=== PATIENT | male | born 1965 | race Caucasian/White ===

== ENCOUNTER 2017-05-08 19:38 | Emergency (ER) | payer OTHER ==
[~2017-05-08] VITALS: Ht 167.6 cm; Wt 113.4 kg
[2017-05-08] MEDS ORDERED: MOBIC15 MG PO (20:30)
[2017-05-08] MEDS ORDERED: NORFLEX100 MG PO (20:30)
== END 2017-05-08 21:09 | disposition home or self-care (01) ==
LOC: EDBD 19:38 → ER 19:38
DX: M62.830 Muscle spasm of back (principal); M54.5 Low back pain

== ENCOUNTER → 2018-04-03 | Outpatient (CLI) | payer BC ==
[~2018-04-03] MED LIST: MOBIC15 MG PO; NORFLEX100 MG PO
== END ==
LOC: ULTRA 12:33
DX: M25.462 Effusion, left knee (principal); R60.1 Generalized edema

== ENCOUNTER → 2020-03-11 | Outpatient (CLI) | payer BC | LOC: LAB 10:41 | PROVIDERS: ATTEND Pediatrics | DX: U07.1 COVID-19 (principal) ==

== ENCOUNTER → 2020-04-08 | Outpatient (CLI) | payer OTHER | LOC: LAB 12:51 | PROVIDERS: ATTEND Pediatrics | DX: Z20.822 Contact with and (suspected) exposure to COVID-19 (principal) ==

== ENCOUNTER → 2020-04-11 | Outpatient (CLI) | payer BC ==
--- NOTE | 2020-04-13 22:20 | SLE ---
[facility] [place] [address] POLYSOMNOGRAPHY STUDY Name: CHRISTLELE SCHROEDER Room #: REG [facility].#: [id number] Admission: 04/11/20 Attend Phys: Maynor Olivares MD Discharge: Date of : 63 Report #: [id number] THIS REPORT FOR: cc: Patrick Mattson MD, Stanley P. MD Khan, Aman U. MD ~ DATE OF SERVICE: 04/11/2020 SLEEP STUDY ATTENDING PHYSICIAN: Dr. Carlos Orellana. The patient is a 54-year-old who weighs 340 pounds with a BMI of 54.9. The patient has history of sleep apnea for which he has been on CPAP at 14 cm water; however, the patient still feels fatigued and tired and has excessive daytime somnolence. The patient was referred for further evaluation with another CPAP titration study, which was performed at [facility]. During the night study, the patient spent 49 minutes in bed and slept for 436 minutes with a sleep efficiency of 89%. Sleep latency was 12.1 minutes with a REM latency of 151 minutes. Sleep architecture showed increased stage 1 and stage 2 sleep, absent slow wave and normal REM sleep. EKG monitoring revealed an average heart rate of 56 beats per minute. No sustained arrhythmias observed. PLMs were seen at an index of 34 per hour and 3 per hour caused EEG arousals. The patient was started on CPAP at 14 cm water and titrated up to 19 cm water. At the final pressure, the patient slept for 110 minutes including 31.5 minutes of supine REM sleep. The patient's AHI was reduced to 0.5 per hour and oxygen saturations remained above 90%. IMPRESSION: 1. Sleep apnea diagnosed by previous sleep study. 2. Moderate periodic limb movements. RECOMMENDATIONS: 1. CPAP at 19 cm water completely eliminated the patient's sleep apnea and should be used on a nightly basis. 2. Follow up in 4-6 weeks to assess compliance with CPAP and to document clinical improvement. 3. Weight loss is strongly advised. 4. Avoid DAG COATER depressants. 5. Cautioned regarding driving until symptoms of sleep apnea resolve with the [facility] [address] [place] [address] POLYSOMNOGRAPHY STUDY Name: CHRISTELLE SCHROEDER Room #: REG [facility].#: [id number] Admission: 04/11/20 Attend Phys: Maynor Olivares MD Discharge: Date of : 63 Report #: [id number] use of CPAP. 6. PLMs does not need to be treated unless the patient has symptoms of restless legs during the day. <ELECTRONICALLY SIGNED> By: Maynor Olivares MD 04/13/202219 22 31 Maynor Olivares MD /nt
== END ==
LOC: SLEEPLAB 03-16 15:44
PROVIDERS: ATTEND Internal Medicine Critical Care Medicine
DX: G47.30 Sleep apnea, unspecified (principal)

== ENCOUNTER → 2020-09-18 | Outpatient (CLI) | payer BC ==
[~2020-09-18] VITALS: Ht 170.2 cm; Wt 156.5 kg
[~2020-09-18] MED LIST changes: +ALPRAZOLAM 0.0.25 M1 PO; +ASTRAGALUS ROOT1 GM PO; +GARLIC1 EACH PO; +GINKGO BILOBA120 MG PO; +LISINOPRIL5 MG PO; +NORVASC 2.5 MG2.5 MG PO; +PAROXETINE CR25 MG PO; +TRIAMTERENE/HCT1 CA1 PO; +ZOLPIDEM TARTRA10 MG PO
--- NOTE | ~2020-09-18 | P ---
[facility] [place] [address] PROCEDURE REPORT Name: CHRISTELLE SCHROEDER Room #: REG [facility].#: [id number] Admission: 09/18/20 Attend Phys: Bruno Alford Discharge: Date of : 63 Report #: [id number] THIS REPORT FOR: cc: Patrick Mattson MD, Stanley P. MD McElhinney, Christian C. MD ~ DOC #: [id number] cc: MD Bruno Zavaleta MD DATE OF SERVICE: 09/18/2020 PROCEDURE PERFORMED: Upper endoscopy with biopsies. HISTORY OF PRESENT ILLNESS: The patient is a 55-year-old male with a history of anemia, who was taking meloxicam on a daily basis, but quit taking this approximately a month ago. He denies any symptoms including nausea, vomiting, abdominal pain, diarrhea, melena or bright red blood per rectum. No previous history of endoscopy. He has a history of obesity and is considering gastric sleeve surgery in the future. Plan is for EGD and colonoscopy today. DESCRIPTION OF PROCEDURE: The risks and benefits of the procedure were explained to the patient, those risks including but not limited to bleeding, perforation and the risk of sedation. He understood these risks and gave informed consent. Sedation was given using propofol per anesthesia. Next, using a standard Olympus upper endoscope, the scope was placed in the patient's mouth and advanced under direct vision through the esophagus, stomach and into the second portion of the duodenum. The larynx was normal in appearance. The esophagus was normal throughout. The GE junction was normal. Overall, the gastric mucosa was normal in the fundus and body; however, in the antrum a mild gastritis was noted. A single ulcer was also noted, 8 mm in diameter. No evidence of bleeding. Biopsies were obtained to rule out H. pylori. The pylorus was normal and patent. The duodenal bulb, first and second portion were normal. Random biopsies of the second portion were also obtained to rule out the possibility of celiac sprue. The scope was then withdrawn and the procedure terminated. The patient tolerated the procedure well. IMPRESSION: 1. Single gastric antral ulcer. No evidence of bleeding with surrounding mild gastritis. 2. Otherwise, normal upper endoscopy. RECOMMENDATIONS: 1. Await biopsy results. 2. Recommend daily PPI therapy. 3. We will proceed with colonoscopy next today. [address] [address] PROCEDURE REPORT Name: CHRISTELLE SCHROEDER Room #: REG [facility]#: [id number] Admission: 09/18/20 Attend Phys: Bruno Alford Discharge: Date of : 63 Report #: [id number] Thank you for allowing me to participate in his care. Bruno Basurto MD CCM/CRISPIN By: 0735 44 Bruno Basurto MD /kayla
--- NOTE | ~2020-09-18 | P ---
[facility] [place] [address] PROCEDURE REPORT Name: CHRISTELLE SCHROEDER Room #: REG [facility].#: [id number] Admission: 09/18/20 Attend Phys: Bruno Alford Discharge: Date of : 63 Report #: [id number] THIS REPORT FOR: cc: Patrick Mattson MD, Stanley P. MD McElhinney, Christian C. MD ~ DOC #: [id number] cc: MD Bruno Zavaleta MD DATE OF SERVICE: 09/18/2020 PROCEDURE PERFORMED: Colonoscopy with biopsies. HISTORY OF PRESENT ILLNESS: The patient is a 55-year-old male with a history of anemia. Upper endoscopy was just performed showing an antral ulcer, nonbleeding; mild gastritis. The patient was on meloxicam, but was held approximately a month ago. Otherwise, normal upper endoscopy. He has never had EGD or colonoscopy before. Denies any change in his stools. No obvious blood in the stools. Apparently had a Hemoccult testing that was negative. Plan is for colonoscopy next today. DESCRIPTION OF PROCEDURE: The risks and benefits of the procedure were explained to the patient, those risks including but not limited to bleeding, perforation and the risk of sedation. He understood these risks and gave informed consent. Sedation was given using propofol per anesthesia. Next, a digital rectal exam was initially performed, which was normal. Next, using a standard Olympus colonoscope, the scope was placed in the patient's anus and advanced under direct vision to the cecum. The overall prep was excellent. The cecum and ileocecal valve were normal in appearance. In the ascending colon, a 4 mm sessile polyp was noted. This was removed with cold forceps, otherwise normal. The transverse, descending colon were normal. A few small scattered diverticuli were noted in the sigmoid colon. No evidence of inflammation. The rectal mucosa was normal. On retroflexion, small nonbleeding internal hemorrhoids were noted. The scope was then withdrawn and the procedure terminated. The patient tolerated the procedure well. IMPRESSION: 1. Small colonic polyp. 2. Mild sigmoid diverticulosis. 3. Small internal hemorrhoids. 4. Otherwise, normal colonoscopy. RECOMMENDATIONS: 1. Await biopsy results. 2. If polyp is hyperplastic, repeat in 10 years; if adenomatous polyp, repeat [address] [address] PROCEDURE REPORT Name: RAQUEL SCHROEDEREL Room #: REG [facility]#: [id number] Admission: 09/18/20 Attend Phys: Bruno Alford Discharge: Date of : 63 Report #: [id number] in 5 years. 3. The patient with a single antral ulcer, could be the etiology of his anemia. No evidence of active bleeding today. I would recommend long-term PPI therapy, if biopsies are negative for H. pylori, especially since the patient will also be likely undergoing gastric sleeve surgery in the future. Thank you for allowing me to participate in his care. Bruno Basurto MD CCM/CHERYL By: [id number] Bruno Basurto MD /nt
--- NOTE | 2020-09-22 19:07 | PATH ---
[facility] [place] [address] PATHOLOGY RPT PROCEDURE Name: HILTON SCHROEDER Room #: REG [facility].#: [id number] Admission: 09/18/20 Date of : 63 Discharge: Report #: [id number] Path Case #: [id number] [facility] Accession Number: [id number] . 01 Material submitted: . PART A: duodenum - DUODENAL BX R/O SPRUE PART B: gastrointestinal site - GASTRITIS BX R/O H PYLORI PART C: colon - ASCENDING COLON POLYP. Modifiers: ascending . 01 Clinical history: . EGD COLONOSCOPY/ ANEMIA/SCREENING . 02 Diagnosis: A. Small bowel mucosa, duodenum R/O sprue, endoscopic biopsy: - No diagnostic abnormalities present. - Negative for villous blunting or increase in intraepithelial lymphocytes. . B. Gastric mucosa, gastritis R/O H. pylori, endoscopic biopsy: - Mild chronic inflammation. - Negative for intestinal metaplasia or atrophy. - Negative for Helicobacter pylori (properly controlled immunohistochemical stain performed). . C. Polyp, ascending colon polyp, endoscopic biopsy: - Serrated polyp. - Negative for dysplasia. ([facility]; 09/22/2020) QMS 09/22/2020 1258 Local . 02 Electronically signed: . Gosia Hopkins MD, Pathologist NPI- [id number] . 01 Gross description: . A. Received in formalin labeled "SchroederEvertonel, duodenal BX rule out sprue" are multiple hooper-brown soft tissue fragments measuring in aggregate 0.5 x 0.5 x 0.2 cm. The specimen is submitted entirely in A1. . B. Received in formalin labeled "Hilton Schroeder, gastritis BX rule out H. pylori" are multiple hooper-brown soft tissue fragments measuring in aggregate 0.7 x 0.5 x 0.1 cm. The specimen is submitted entirely in B1. . C. Received in formalin labeled "Hilton Schroeder, ascending colon polyp" are multiple hooper-brown soft tissue fragments measuring in aggregate 0.[address] [address] PATHOLOGY RPT PROCEDURE Name: HILTON SCHROEDER [id number] Ad[facility]: 09/18/20 Date of : 63 Discharge: Report #: [id number] Path Case #: [id number] 0.4 x 0.1 cm. The specimen is submitted entirely in C1. ([facility] [place]; 09/20/2020) SYC/SYC 09/20/2020 0911 Local . 02 Pathologist provided ICD-10: K29.50, K63.5, Z12.11 . 02 CPT . 794138, 351774, 346481, G33584 Specimen Comment: A courtesy copy of this report has been sent to [phone], [phone] Specimen Comment: [phone] Specimen Comment: Report sent to / DR ALLISON Performed at: [address], [place] [id number] MD Omar Gautam MD Phone: [phone] Performed at: [address] [id number] MD Gosia Hopkins MD Phone: [phone]
== END | disposition home or self-care (01) ==
LOC: GI 06:22
PROVIDERS: ATTEND Specialist
DX: D64.9 Anemia, unspecified (principal); K63.5 Polyp of colon; K57.30 Diverticulosis of large intestine without perforation or abscess without bleeding; K29.50 Unspecified chronic gastritis without bleeding; K64.8 Other hemorrhoids; K25.9 Gastric ulcer, unspecified as acute or chronic, without hemorrhage or perforation; I10 Essential (primary) hypertension; F32.9 Major depressive disorder, single episode, unspecified; F41.9 Anxiety disorder, unspecified; G47.30 Sleep apnea, unspecified; Z98.890 Other specified postprocedural states; Z79.899 Other long term (current) drug therapy; Z88.8 Allergy status to other drugs, medicaments and biological substances
CPT/HCPCS: 62110; 62900